=== PATIENT | male | born 1960 | race Caucasian/White ===

== ENCOUNTER 2017-10-08 14:54 | Emergency (ER) | payer OTHER, SELFPAY ==
[2017-10-08] MEDS ORDERED: TORAdol 30 mg Injection IM ONE (15:16)
[2017-10-08] MEDS ORDERED: Norflex 60 MG/2 ML IM ONE (15:16)
[2017-10-08] MEDS ORDERED: TORAdol 30 mg Injection ONE (15:42)
[2017-10-08] MEDS ORDERED: Norflex 60 MG/2 ML ONE (15:42)
--- NOTE | 2017-10-08 16:16 | ERPHSYRPT ---
- History of Present Illness Time Seen by Provider: 10/08/17 15:09 Source: patient, family Patient Subjective Stated Complaint: Pt states "I am not sure what is wrong with my left leg but it really hurts from my buttcheek to my ankle." Triage Nursing Assessment: Pt alert and oriented X 3, skin pwd Pt ambulates with an upright gait and small limp, able to speak in clear full sentecnes. Pt Physician History: CC: left leg pain Hx: 57 y/o patient with no local doctor. He has pain in left upper leg since August (3 months). No inciting injury or event. No real back pain. Pain runs along the back of his upper leg usually. He has has MRI in the past. No fever or chillls. No N/T/W. Normal urination. No abd pain. He was released from the doctor's practice and has no local doctor. Pain is off and on severe at times. Allergies/Adverse Reactions: No Known Drug Allergies Allergy (Unverified 10/04/13 11:20) Hx Tetanus, Diphtheria Vaccination/Date Given: No Hx Influenza Vaccination/Date Given: No Hx Pneumococcal Vaccination/Date Given: No Immunizations Up to Date: No - Review of Systems Constitutional: No Fever, No Chills Cardiac: No Chest Pain Abdominal/Gastrointestinal: No Abdominal Pain Musculoskeletal: Joint Pain (left hip area), No Back Pain Skin: No Rash Neurological: No Focal Weakness, No Parasthesia All Other Systems: Reviewed and Negative - Past Medical History Pertinent Past Medical History: No Neurological History: No Pertinent History Cardiac History: No Pertinent History Respiratory History: No Pertinent History Endocrine Medical History: No Pertinent History Musculoskeletal History: Degenerative Disk Disease - Past Surgical History Past Surgical History: No - Social History Smoking Status: Current every day smoker How long have you smoked: 40 years Exposure to second hand smoke: Yes Drug Use: none Patient Lives Alone: No - Nursing Vital Signs Nursing Vital Signs: Initial Vital Signs Temperature 98.2 F 10/08/17 15:00 Pulse Rate 76 10/08/17 15:00 Respiratory Rate 18 10/08/17 15:00 Blood Pressure 156/89 10/08/17 15:00 O2 Sat by Pulse Oximetry 98 10/08/17 15:00 Pain Scale Pain Intensity 10 - Physical Exam General Appearance: alert Eye Exam: PERRL/EOMI Ears, Nose, Throat Exam: normal ENT inspection, moist mucous membranes Neck Exam: normal inspection, non-tender, supple Respiratory Exam: normal breath sounds Cardiovascular Exam: regular rate/rhythm Gastrointestinal/Abdomen Exam: soft, No tenderness, No distention Male Genitalia Exam: normal genitalia Back Exam: normal inspection, No vertebral tenderness Extremity Exam: tenderness (left lateral hip at trochanter), other (good ROM left) Neurologic Exam: alert, oriented x 3, cooperative, 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, sensation nml, No motor deficits Skin Exam: warm, dry, No rash SpO2 Interpretation: normal SpO2: 98 Oxygen Delivery: Room Air - Course Nursing assessment & vital signs reviewed: Yes - Radiology Exams pelvis, left femur X-ray Interpretation: Reviewed by me, Negative Ordered Tests: Active Orders 24 hr Category Date Time Status FEMUR Stat Exams 10/08/17 15:34 Taken PELVIS (1 OR 2 VIEWS) Stat Exams 10/08/17 15:15 Taken Medication Summary Discontinued Medications Generic Name Dose Route Start Last Admin Trade Name [facility] PRN Reason Stop Dose Admin Ketorolac Tromethamine 60 mg 10/08/17 15:16 10/08/17 15:44 Toradol 30 Mg Injection IM 10/08/17 15:17 60 mg STAT ONE Administration Ketorolac Tromethamine Confirm 10/08/17 15:42 Toradol 30 Mg Injection Administered 10/08/17 15:43 Dose 30 mg .ROUTE .STK-MED ONE Orphenadrine Citrate 60 mg 10/08/17 15:16 10/08/17 15:45 Norflex 60 Mg/2 Ml IM 10/08/17 15:17 60 mg STAT ONE Administration Orphenadrine Citrate Confirm 10/08/17 15:42 Norflex 60 Mg/2 Ml Administered 10/08/17 15:43 Dose 60 mg .ROUTE .STK-MED ONE - Progress Progress Note: 10/08/17 16:14 Norflex and toradol given here. Instr given. Advised he needs to see family doctor. Counseled pt/family regarding: diagnosis, need for follow-up, rad results - Departure Time of Disposition: 16:14 Departure Disposition: Home Clinical Impression: Left leg pain Condition: Stable Critical Care Time: No Referrals: DOCTOR,NO FAMILY [NON-STAFF PHY W/O PRIVILEGES] - Instructions: Sciatica (DC) Additional Instructions: You need to follow up with a family or primary care doctor. Rx norflex- next dose in AM. Rx naproxen for pain. No driving tonite or while taking norflex. Prescriptions: Naproxen 500 mg [Naprosyn 500 MG] 500 tab PO BID #15 tablet Orphenadrine Citrate 100 mg [Norflex 100 MG Tablet] 1 tab PO BID #10 tab
--- NOTE | 2017-10-08 16:17 | XRAY ---
Indication: Left femur/left knee pain. Comparison: None. 2 views of the left femur demonstrates tiny fabella. No other bony, articular, or soft tissue abnormalities.
--- NOTE | 2017-10-08 16:17 | XRAY ---
Indication: Left femur/left knee pain. Comparison: February 02, 2016. Single AP pelvis obtained. Again no bony, articular, or soft tissue abnormalities.
[2017-10-08 16:24] VITALS: BP 165/95; PULSE 82; O2SAT 97
== END 2017-10-08 16:24 | disposition home or self-care (01) ==
LOC: ED 14:54
DX: M79.605 Pain in left leg (principal)
CPT/HCPCS: 72170; 73552; 96372; 99283; 99284; J1885; J2360